=== PATIENT | male | born 1945 | race Two or more races ===

== ENCOUNTER 2021-03-11 08:25 | Observation (INO) | payer OTHER, BC ==
[2021-03-11 08:47] VITALS: BMI 24.7
[2021-03-11 11:37] LABS: BASO % 0.5 % (0-2.0); EOS % 2.4 % (0-4.5); HEMATOCRIT 22.7 % (35.4-49); HEMOGLOBIN 7.1 GM/dL (11.7-16.9); LYMPH % 20.5 % (8-40); MCH 23.1 pg (25.7-33.7); MCHC 31.4 g/dl (32.0-35.9); MEAN CELL VOLUME 73.4 fl (80-96); MEAN PLT VOLUME 8.4 fl (7.5-11.1); MONO % 11.4 % (3.8-10.2); NEUT % 65.2 % (42.8-82.8); PLATELET COUNT 268 10^3/uL (134-434); RBC 3.09 M/mm3 (4.00-5.60); RDW 20.6 % (11.9-15.9); WHITE BLOOD COUNT 4.9 K/mm3 (4.0-10.0)
[2021-03-11 11:42] LABS: INR 1.1 (0.83-1.09); PROTHROMBIN TIME (PATIENT) 13.3 SEC (9.7-13.0)
[2021-03-11 11:45] LABS: ACTIVATED PTT 30.5 SECONDS (25.2-36.5)
[2021-03-11 12:03] LABS: CALCIUM 8.1 mg/dL (8.5-10.1)
[2021-03-11 12:04] LABS: ALBUMIN 3.3 g/dl (3.4-5.0); BLOOD UREA NITROGEN 18.5 mg/dL (7-18)
[2021-03-11 12:08] LABS: BILIRUBIN,TOTAL 0.3 mg/dL (0.2-1); TOT PROT 5.9 g/dl (6.4-8.2)
[2021-03-11 12:18] LABS: ANISOCYTOSIS 2+; MACROCYTOSIS 0; OVALOCYTE 1+; PLATELET ESTIMATE NORMAL; TARGET CELLS 1+
[2021-03-12] MEDS ORDERED: MELATONIN 5 MG TABLETS PO ONE (02:00)
[2021-03-12] MEDS ORDERED: ACETAMINOPHEN 325 MG TABLET (FP) PO ONE (02:00)
[2021-03-12] MEDS ORDERED: PANTOPRAZOLE 40 MG TABLET PO ONE (02:00)
[2021-03-12 07:05] VITALS: BP 116/62; PULSE 62; TEMP 98.4
[2021-03-12 09:26] LABS: BASO % 0.4 % (0-2.0); EOS % 1.8 % (0-4.5); HEMATOCRIT 29.7 % (35.4-49); HEMOGLOBIN 9.7 GM/dL (11.7-16.9); LYMPH % 13.7 % (8-40); MCH 24.5 pg (25.7-33.7); MCHC 32.5 g/dl (32.0-35.9); MEAN CELL VOLUME 75.3 fl (80-96); MEAN PLT VOLUME 8.3 fl (7.5-11.1); MONO % 9.3 % (3.8-10.2); NEUT % 74.8 % (42.8-82.8); PLATELET COUNT 262 10^3/uL (134-434); RBC 3.95 M/mm3 (4.00-5.60); RDW 20.6 % (11.9-15.9); WHITE BLOOD COUNT 6.5 K/mm3 (4.0-10.0)
[2021-03-12 10:02] LABS: CALCIUM 8.4 mg/dL (8.5-10.1)
[2021-03-12 10:03] LABS: ALBUMIN 3.5 g/dl (3.4-5.0); BLOOD UREA NITROGEN 12.8 mg/dL (7-18)
[2021-03-12 10:07] LABS: BILIRUBIN,TOTAL 0.6 mg/dL (0.2-1); TOT PROT 6.6 g/dl (6.4-8.2)
== END 2021-03-12 10:35 | disposition left against medical advice (07) ==
LOC: JER 08:25 → INTOOBSV 12:11 → UNDOADMOB 12:11 → JERBED 12:11 → OBSVTOIN 12:11 → JERBED 18:39 → J5S 18:39 → JERBED 03-12 08:38 → J5S 03-12 08:38
PROVIDERS: ADMIT Family Medicine Geriatric Medicine; ATTEND Internal Medicine
DX: D50.9 Iron deficiency anemia, unspecified (principal); E11.9 Type 2 diabetes mellitus without complications; I25.810 Atherosclerosis of coronary artery bypass graft(s) without angina pectoris; R79.89 Other specified abnormal findings of blood chemistry; R53.1 Weakness
CPT/HCPCS: 36415; 36430; 80053; 82272; 82728; 82962; 83540; 83550; 84466; 85025; 85610; 85730; 86850; 86900; 86901; 86922; 93005; 93010; 99285-25; C9803; G0378; P9058; U0003; U0005